=== PATIENT | female | born 1990 | race Hispanic/Latino ===

== ENCOUNTER 2019-11-05 09:54 | Emergency (ER) | payer MEDICAID, SELFPAY ==
[2019-11-05 10:18] LABS: #Eosinphils 0.1 thou/uL (0.0-0.7); #Lymphocytes 2.4 thou/uL (1.20-3.40); #Monocytes 0.6 thou/uL (0.11-0.59); #Neutrophils 7.3 thou/uL (1.40-6.50); %Basophils 0.1 % (0.0-1.0); %Eosinophils 0.5 % (0.0-10.0); %Lymphocytes 23.3 % (21.0-51.0); %Monocytes 6.1 % (0.0-10.0); Mean Corpuscular HGB CONC 32.7 g/dL (32.0-36.0); Mean Corpuscular Hemoglobin 28.7 pg (27.0-31.0); Mean Corpuscular Volume 87.5 fL (78.0-98.0); Mean Platelet Volume 6.6 fL (7.4-10.4); Platelet Count 373 thou/uL (130-400); RBC Distribution Width 12.3 % (11.5-14.5); Red Blood Cell (RBC) Count 4.53 mill/uL (4.20-5.40); White Blood Cell (WBC) Count 10.4 thou/uL (4.8-10.8)
[2019-11-05 10:31] LABS: Bacteria/HPF None Seen HPF (None Seen); Bilirubin Negative (Negative); Blood, Urine Trace (Negative); Clarity Clear (Clear); Glucose, Urine (Dipstick) Normal (Negative); Ketone, Urine Negative (Negative); Leukocyte Negative Leu/uL (Negative); Nitrite Negative (Negative); Protein, Urine (Dipstick) Negative (Neg-Trace); RBC/HPF 0-3 HPF (0-3); Specific Gravity, Urine 1.008 (1.002-1.036); Squamous Epithelial 0-3 HPF (0-3); Urobilinogen Normal mg/dL (Less than 2); WBC/HPF 0-3 HPF (0-3); pH, Urine 6.5 (5.0-9.0)
[2019-11-05 10:42] LABS: ALT (SGPT) 10 U/L (8-55); AST (SGOT) 15 U/L (5-34); Albumin 3.9 g/dL (3.5-5.0); Alkaline Phosphatase 61 U/L (40-110); Anion Gap 13 mmol/L (10-20); BUN (Urea Nitrogen) 5 mg/dL (7.0-18.7); Bilirubin, Total 0.3 mg/dL (0.2-1.2); Calc. Creatinine Clearance 0 mL/min (70-130); Calcium 8.9 mg/dL (7.8-10.44); Carbon Dioxide 22 mmol/L (22-29); Chloride 105 mmol/L (98-107); Estimated GFR-MDRD Greater than 90; Globulin 3.5 g/dL (2.4-3.5); Glucose 101 mg/dL (70-105); Potassium 3.5 mmol/L (3.5-5.1); Protein, Total 7.4 g/dL (6.0-8.3); Sodium 136 mmol/L (136-145)
--- NOTE | 2019-11-05 11:02 | ULT ---
EXAM: Pelvic ultrasound HISTORY: Pelvic pain in a female COMPARISON: None TECHNIQUE: Multiple grayscale and color Doppler images were obtained in a transabdominal and transvag inal pelvic ultrasound. Spectral analysis of the Doppler waveforms of the ovaries were performed. FINDINGS: UTERUS: There is an intrauterine gestational sac. This contains a yolk sac and pole. [place]-rump length: 4.06 cm which estimates gestational age at 11 weeks 0 days. A heart rate is detected at 171 bpm. No evidence of subchorionic hemorrhage. No free fluid is seen in the pelvis. RIGHT OVARY: Not visualized LEFT OVARY: Normal flow without focal mass. IMPRESSION: Single live intrauterine with estimated age of 11 weeks 0 days.
== END 2019-11-05 12:20 | disposition home or self-care (01) ==
LOC: ERS 09:54
DX: O20.0 Threatened abortion (principal); Z3A.11 11 weeks gestation of pregnancy
CPT/HCPCS: 36415; 76856; 80053; 81003; 81015; 84702; 85025; 86900; 86901

== ENCOUNTER 2020-01-16 08:46 | Outpatient (CLI) | payer OTHER ==
--- NOTE | 2020-01-16 10:19 | ULT ---
Complete obstetrical ultrasound INDICATION: History of and cervical length TECHNIQUE: Grayscale, M-mode Doppler and Doppler images were obtained of the abdomen and pelvis to ev aluate the patient's known . COMPARISON: Prior pelvic ultrasound dated November 05, 2019 FINDINGS: Number of gestations: Single. Presentation: Breech. Placental location: Fundal in location Previa: No evidence for previa. Cervical length: 4.4 cm NOHEMY: 12.55 cm. heart rate: 156 bpm. Biparietal diameter: 4.76cm, 20 weeks and 3 days, Not calculated.. Head circumference: 18.26 cm, 20 weeks and 5 days, Not calculated. Abdominal circumference: 16.90 cm, 22 weeks and 0 days, Not calculated. Femoral length: 3.65cm, 21 weeks and 5 days, Not calculated. Estimated weight: 436 g +/- 64g 0 pounds and 15 ounces +/- 2 ounces, 88th percentile SURVEY: head: Normal appearing. Cerebellum: Normal appearing. Cisterna magna: Normal appearing. Lateral ventricles: Normal appearing. 4 chamber heart: Normal appearing.. Stomach: Normal appearing. Kidneys: Normal appearing. Cord insertion: Normal appearing. Bladder: Normal appearing. Spine: Not well seen Lips and nose: Not well seen Extremities: Normal appearing. Three-vessel CORD: Normal appearing. The average gestational age by ultrasound is 21 weeks and 2 dayswith estimated due date of May 112020. The estimated dates by clinical data is 20 weeks and 5 dayswith estimated due date of May 30. IMPRESSION: 1. Single live intrauterine gestation with size and dates as above. 2. The survey was within normal limits. The spine and lips and nose were not well seen. A follow-up evaluation 1-2 weeks to complete survey is recommended.
== END 2020-01-16 08:47 | disposition home or self-care (01) ==
LOC: BICULT 08:46
PROVIDERS: ATTEND Family Medicine
DX: Z34.82 Encounter for supervision of other normal pregnancy, second trimester (principal); Z3A.21 21 weeks gestation of pregnancy
CPT/HCPCS: 76805

== ENCOUNTER 2020-05-08 22:28 | Inpatient (IN) | payer MEDICAID, OTHER, SELFPAY ==
[~2020-05-08 22:28] MED LIST: Bupivacaine HCl 0.25%/Epi 0.0005/PF 10 ML VIAL FS ONE
[2020-05-08 22:37] VITALS: BMI 32.4
[2020-05-08] MEDS ORDERED: Ondansetron PF 4 MG/2 ML Vial IVP PRN (22:54)
[2020-05-08] MEDS ORDERED: NS / Oxytocin 40 units/1000ml 1,000 ML IV PRN (22:54)
[2020-05-08] MEDS ORDERED: hydrALAZINE 20 MG/ML VIAL SLOW IVP PRN (22:54)
[2020-05-08] MEDS ORDERED: HYDROcodone/Acetaminophen 5/325 mg Tablet PO PRN ×2 (22:54)
[2020-05-08] MEDS ORDERED: Lidocaine 1% (PF) 30 ML VIAL SC PRN (22:54)
[2020-05-08] MEDS ORDERED: Promethazine HCl 25 MG/ML VIAL IM PRN (22:54)
[2020-05-08] MEDS ORDERED: Ibuprofen 800 MG TAB PO PRN (22:54)
[2020-05-08] MEDS ORDERED: Butorphanol Tartrate 1 MG/ML VIAL SLOW IVP PRN (22:54)
[2020-05-08] MEDS ORDERED: Lactated Ringer's 1,000 ML IV SCH (23:00)
[2020-05-08] MEDS ORDERED: NS w/ Oxytocin 30 units 500 ML IVPB SCH (23:15)
[2020-05-08 23:30] LABS: Hemoglobin 12.8 g/dL (12.0-16.0); Mean Corpuscular HGB CONC 33.4 g/dL (32.0-36.0); Mean Corpuscular Hemoglobin 28.6 pg (27.0-31.0); Mean Corpuscular Volume 85.7 fL (78.0-98.0); Mean Platelet Volume 7.4 fL (7.4-10.4); Platelet Count 263 thou/uL (130-400); RBC Distribution Width 13.2 % (11.5-14.5); Red Blood Cell (RBC) Count 4.48 mill/uL (4.20-5.40)
[2020-05-08] MEDS ORDERED: Fentanyl 4 mcg/Bup 0.1% Cadd 100 ML ONE (23:30)
[2020-05-09 00:09] LABS: Syphilis Antibody Nonreactive (Nonreactive); Syphilis Antibody Index 0.04 S/CO (<1.00 Non-Reactive)
[2020-05-09 00:18] LABS: HBSAg Index 0.11 S/CO (0-0.99); HIV (1/2) Antibody/Antigen Non-Reactive (NonReactive); Hep B Surf Ag Non-Reactive S/CO (NonReactive)
[2020-05-09] MEDS ORDERED: Ondansetron PF 4 MG/2 ML Vial IVP PRN ×2 (00:35→06:02)
[2020-05-09] MEDS ORDERED: Acetaminophen 325 MG TAB PO PRN (00:35)
[2020-05-09] MEDS ORDERED: ePHEDrine 50 MG/ML VIAL SLOW IVP PRN (00:35)
[2020-05-09] MEDS ORDERED: Naloxone HCl 0.4 mg/ml Vial IVP PRN ×2 (00:35)
[2020-05-09] MEDS ORDERED: diphenhydrAMINE 50 MG/ML VIAL IVP PRN (00:35)
[2020-05-09] MEDS ORDERED: Promethazine HCl 25 MG/ML VIAL IM PRN ×2 (00:35→06:02)
[2020-05-09] MEDS ORDERED: Lactated Ringer's 500 ML IV PRN (00:35)
[2020-05-09] MEDS ORDERED: Fentanyl 4 mcg/Bupivacaine 0.1% Cassette 100 ML EPIDURAL SCH (00:45)
[2020-05-09] MEDS ORDERED: Communication Order-Pharmacy FS SCH (00:45)
[2020-05-09] MEDS ORDERED: Milk Of Magnesia 30 ML UDCUP PO PRN (06:02)
[2020-05-09] MEDS ORDERED: Bisacodyl 10 MG SUPP PR PRN (06:02)
[2020-05-09] MEDS ORDERED: Lanolin Ointment 7 GM TUBE TOP PRN (06:02)
[2020-05-09] MEDS ORDERED: diphenhydrAMINE 25 MG CAP PO PRN (06:02)
[2020-05-09] MEDS ORDERED: HYDROcodone/Acetaminophen 5/325 mg Tablet PO PRN (06:02)
[2020-05-09] MEDS ORDERED: hydrALAZINE 20 MG/ML VIAL SLOW IVP PRN (06:02)
[2020-05-09] MEDS ORDERED: Adacel (T-DAP) 0.5 ML SYRINGE IM ONE (06:02)
[2020-05-09] MEDS ORDERED: NS w/ Oxytocin 30 units 1,000 ML IV SCH (06:15)
[2020-05-09] MEDS: Ferrous Sulfate 325 MG TAB PO SCH ×2 (08:15→17:19)
[2020-05-09] MEDS: Docusate Calcium (SURFAK) 240 MG CAP PO SCH ×2 (08:22→20:37)
[2020-05-09] MEDS: Ibuprofen 800 MG TAB PO SCH ×3 (08:22→20:37)
[2020-05-09] MEDS: Prenatal Vitamin 1 TAB PO SCH (08:22)
[2020-05-09 11:48] LABS: SARS-CoV-2 PCR by NAA Not Detected (NotDetected)
[2020-05-09] MEDS: HYDROcodone/Acetaminophen 5/325 mg Tablet PO PRN (16:08)
[2020-05-10] MEDS: Ibuprofen 800 MG TAB PO SCH (06:15)
[2020-05-10] MEDS: Ferrous Sulfate 325 MG TAB PO SCH (08:36)
[2020-05-10] MEDS: HYDROcodone/Acetaminophen 5/325 mg Tablet PO PRN (08:44)
[2020-05-10] MEDS: Docusate Calcium (SURFAK) 240 MG CAP PO SCH (08:44)
[2020-05-10] MEDS: Prenatal Vitamin 1 TAB PO SCH (08:44)
[2020-05-10 12:09] VITALS: BP 104/63; TEMP 98.6
== END 2020-05-10 14:50 | disposition home or self-care (01) | DRG 807 ==
LOC: L&D/OP 22:28 → L&D 22:54 → 3SW 05-09 07:30
PROVIDERS: ADMIT Obstetrics & Gynecology; ATTEND Obstetrics & Gynecology
PROC: 10E0XZZ Delivery of Products of Conception, External Approach (ICD-10-PCS; principal; 2020-05-09)
DX: O80 Encounter for full-term uncomplicated delivery (principal); Z37.0 Single live birth; Z3A.37 37 weeks gestation of pregnancy; Z20.822 Contact with and (suspected) exposure to COVID-19
CPT/HCPCS: 36415; 51702; 85027; 86780; 86850; 86900; 86901; 87340; 87389; 87635; 90715; 99285; U0003; U0005

== ENCOUNTER 2021-01-15 08:25 | Outpatient (CLI) | payer SELFPAY ==
[2021-01-15 10:30] LABS: BHCG - Serum Negative (NEGATIVE); Pregs Control Background? CLEAR/WHITE (CLR/WHITE); Pregs Control Bar Appear? YES (CONTROL BAR)
[2021-01-15 10:39] LABS: ALT (SGPT) 29 U/L (8-55); AST (SGOT) 25 U/L (5-34); Albumin 4.3 g/dL (3.5-5.0); Alkaline Phosphatase 72 U/L (40-110); Anion Gap 13 mmol/L (10-20); BUN (Urea Nitrogen) 9 mg/dL (7.0-18.7); Bilirubin, Total 0.6 mg/dL (0.2-1.2); Calc. Creatinine Clearance 0 mL/min (70-130); Carbon Dioxide 25 mmol/L (22-29); Chloride 103 mmol/L (98-107); Globulin 3.4 g/dL (2.4-3.5); Glucose 119 mg/dL (70-105); Protein, Total 7.7 g/dL (6.0-8.3); Sodium 137 mmol/L (136-145)
[2021-01-15 10:47] LABS: #Eosinphils 0.1 10x3/uL (0.0-0.5); #Monocytes 0.6 10x3/uL (0.0-1.1); #Neutrophils 5.9 10x3/uL (1.5-8.4); %Basophils 0.3 % (0.0-2.0); %Monocytes 6.3 % (0.0-10.0); Hemoglobin 12.9 g/dL (12.0-15.5); Mean Corpuscular HGB CONC 31.6 g/dL (32.0-36.0); Mean Corpuscular Hemoglobin 28.6 pg (27.0-33.0); Mean Corpuscular Volume 90.5 fl (81.6-98.3); Mean Platelet Volume 9.8 fl (7.4-10.4); Platelet Count 389 10x3/uL (150-450); RBC Distribution Width 12.7 % (11.5-14.5); Red Blood Cell (RBC) Count 4.51 10x6/uL (3.90-5.03); White Blood Cell (WBC) Count 9.7 10x3/uL (3.5-10.5)
[2021-01-15 17:18] LABS: SARS-CoV-2 PCR by NAA Not Detected (NotDetected)
== END 2021-01-15 08:26 | disposition home or self-care (01) ==
LOC: LABBT 08:25
PROVIDERS: ATTEND Surgery
DX: Z01.812 Encounter for preprocedural laboratory examination (principal); K42.9 Umbilical hernia without obstruction or gangrene; Z20.822 Contact with and (suspected) exposure to COVID-19
CPT/HCPCS: 80053; 84703; 85025; U0003; U0005

== ENCOUNTER 2021-01-20 09:15 | Day surgery (SDC) | payer OTHER ==
[2021-01-19 13:17] VITALS: BMI 25.2
[2021-01-20] MEDS ORDERED: Midazolam HCl 2 mg/2 ml Vial ONE (11:53)
[2021-01-20] MEDS ORDERED: Fentanyl 100 MCG/2 ML VIAL ONE (11:53)
[2021-01-20] MEDS ORDERED: Bupivacaine PF 0.5% 30 ML VIAL ONE (12:03)
[2021-01-20] MEDS ORDERED: Lidocaine 1% w/Epinephrine 1:100K 20 ML VIAL ONE (12:03)
[2021-01-20] MEDS ORDERED: Lidocaine 1% PF 5 ML VIAL ONE (12:18)
[2021-01-20] MEDS ORDERED: Ketorolac Tromethamine 30 MG/ML VIAL ONE (12:18)
[2021-01-20] MEDS ORDERED: Dexamethasone 20 MG/5 ML VIAL ONE (12:18)
[2021-01-20] MEDS ORDERED: Ondansetron PF 4 MG/2 ML Vial ONE (12:18)
[2021-01-20] MEDS ORDERED: PROPOFOL 200 MG/20 ML VIAL ONE (12:18)
== END 2021-01-20 14:57 | disposition home or self-care (01) ==
LOC: SDC 09:15
PROVIDERS: ATTEND Surgery
PROC: 0WUF0JZ Supplement Abdominal Wall with Synthetic Substitute, Open Approach (ICD-10-PCS; principal; 2021-01-20)
DX: K42.9 Umbilical hernia without obstruction or gangrene (principal)
CPT/HCPCS: J2250; J3010; S0020